=== PATIENT | female | born 1990 | race Caucasian/White ===

== ENCOUNTER 2017-05-11 19:26 | Emergency (ER) | payer BC ==
[2017-05-11] MEDS: IBUPROFEN 600 MG TAB PO (21:45)
[2017-05-11 22:19] LABS: URINE BLOOD (Dip) POC 3+ (NEGATIVE); URINE GLUCOSE (Dip) POC Negative (NEGATIVE); URINE KETONES (Dip) POC Negative (NEGATIVE); URINE LEUKOCYTE EST (Dip) POC Negative (NEGATIVE); URINE NITRITE (Dip) POC Negative (NEGATIVE); URINE TOTAL PROTEIN POC 1+ (NEGATIVE)
[2017-05-11 23:43] LABS: ADD MAN DIFF? NO
[2017-05-11 23:50] LABS: BASOPHILS % 0.4 % (0.0-2.0); EOSINOPHILS # 0.2 10^3/ul (0.0-0.5); EOSINOPHILS % 1.4 % (0.0-7.0); HEMATOCRIT 40.2 % (37.0-47.0); HEMOGLOBIN 13.5 g/dl (12.0-16.0); LYMPHOCYTES # 3.8 10^3/ul (0.8-2.9); LYMPHOCYTES % 35.1 % (15.0-51.0); MEAN CORPUSCULAR HEMOGLOBIN 29.3 pg (29.0-33.0); MEAN CORPUSCULAR HGB CONC 33.6 g/dl (32.0-37.0); MEAN CORPUSCULAR VOLUME 87.2 fl (82.0-101.0); MEAN PLATELET VOLUME 10.2 fl (7.4-10.4); MONOCYTE # 0.7 10^3/ul (0.3-0.9); MONOCYTES % 6.8 % (0.0-11.0); PLATELET COUNT 286 10^3/UL (140-415); RED BLOOD COUNT 4.61 10^6/ul (4.20-5.40); RED CELL DISTRIBUTION WIDTH 12.4 % (11.5-14.5)
[2017-05-11 23:50] LABS: WHITE BLOOD COUNT 10.7 10^3/ul (4.8-10.8)
[2017-05-12 00:07] LABS: ALANINE AMINOTRANSFERASE 36 IU/L (13-69); ALBUMIN 4.7 g/dl (3.3-4.9); ALBUMIN/GLOBULIN RATIO 1.38; ALKALINE PHOSPHATASE 87 IU/L (42-121); ANION GAP 16 (8-16); ASPARTATE AMINO TRANSFERASE 22 IU/L (15-46); BLOOD UREA NITROGEN 17 mg/dl (7-20); CALCIUM 9.6 mg/dl (8.4-10.2); CARBON DIOXIDE 29 mmol/L (21-31); CHLORIDE 104 mmol/L (97-110); CREATININE 0.76 mg/dl (0.44-1.00); GLUCOSE 83 mg/dl (70-220); SODIUM 145 mmol/L (135-144); TOTAL PROTEIN 8.1 g/dl (6.1-8.1)
[2017-05-12] MEDS: AZITHROMYCIN 250 MG TAB PO (00:28)
[2017-05-12] MEDS: CEFTRIAXONE 250 MG INJ IM (00:34)
== END 2017-05-12 00:35 | disposition home or self-care (01) ==
LOC: FTE 05-12 00:35
DX: R10.2 Pelvic and perineal pain (principal); Z87.891 Personal history of nicotine dependence
CPT/HCPCS: 76856; 80053; 81003; 85025; 96372; 99285-25